=== PATIENT | female | born 1980 | race Two or more races ===

== ENCOUNTER 2017-12-17 16:00 | Emergency (ER) | payer MEDICAID ==
[~2017-12-17] VITALS: Ht 177.8 cm; Wt 122.5 kg
[~2017-12-17 16:00] MED LIST: ANTIHYPERTENSIVE
[2017-12-17 16:13] VITALS: BP 150/93
--- NOTE | 2017-12-17 16:23 | Emergency Room Report ---
History of Present Illness General Chief Complaint: General Complaint Source: Patient Present Illness HPI 37-year-old female, history of SVT one year ago, presenting with dizziness and palpitations. Patient states that it lasted for about 5-8 minutes, she called EMS, EMS states that she was in SVT, gave 6 mg of adenosine, then another 12 mg of adenosine and then she converted to normal sinus rhythm. Patient currently denies any chest pain, dizziness, lightheadedness Denies being , no thyroid issues States that this occurred one year ago, has not seen a patient accounts coordinator after the event Allergies: Coded Allergies: No Known Allergies (Unverified , 02/22/15) Patient History Past Medical History: see triage record Past Surgical History: none Pertinent Family History: none Now: No Reviewed Nursing Documentation: PMH: Agreed, PSxH: Agreed Nursing Documentation-PMH Past Medical History: No Stated History Hx Cardiac Problems: Yes - A.JOE Hx Hypertension: Yes Review of Systems All Other Systems: negative except mentioned in HPI Physical Exam Vital Signs Date Time Temp Pulse Resp B/P (MAP) Pulse Ox O2 Delivery O2 Flow Rate FiO2 12/17/17 16:03 98.7 105 18 161/105 98 Room Air 98.8 Sp02 EP Interpretation: reviewed, normal General Appearance: normal inspection, well appearing, no apparent distress, alert, GCS 15, non-toxic Head: normocephalic, atraumatic Eyes: bilateral eye normal inspection, bilateral eye PERRL, bilateral eye EOMI ENT: normal ENT inspection, normal pharynx, normal voice, moist mucus membranes Neck: normal inspection, full range of motion, supple Respiratory: normal inspection, lungs clear, normal breath sounds, no respiratory distress, no retraction, no wheezing, speaking full sentences, chest symmetrical Cardiovascular #1: normal inspection, regular rate, rhythm, no edema, normal capillary refill Cardiovascular #2: 2+ radial (R), 2+ radial (L) Gastrointestinal: normal inspection, non tender, soft, non-distended, no guarding Musculoskeletal: normal inspection, back normal, normal range of motion, non- tender Neurologic: normal inspection, alert, oriented x3, responsive, motor strength/ tone normal, sensory intact, normal gait, speech normal Psychiatric: normal inspection, judgement/insight normal, memory normal Skin: normal inspection, normal color, no rash, warm/dry, well hydrated, normal turgor Medical Decision Making Diagnostic Impression: Primary Impression: Hx of supraventricular tachycardia ER Course 37-year-old female presenting with sudden dizziness and palpitations, found to be in SVT DDX: SVT Rule out ACS, thyroid issues, dehydration PE less likely given history and physical examination, not hypoxic/tachycardic, no risk factors, PERC negative. Plan: Labs, EKG, CXR Anticipate DC home as patient appears clinically well. ER course: Patient remains well appearing in ED. no arrythmia during stay Feels much better Noted to have high TSH, told to followup with primary care DrAraceli Disposition: Patient will be discharged to home Strict precautions discussed with patient on when to emergently return to the ED : this includes worsening/severe chest pain, palpitations, shortness of breath, syncopal episodes, fever or chills, which may indicate severe illness. Patient verbalized understanding. Patient instructed to follow up with their PMD within the next 2 days. Patient agrees with plan. Aslo fu with cardiology Please note that this Emergency Department Report was dictated using [employer] representative technology software, occasionally this can lead to erroneous entry secondary to interpretation by the dictation equipment. EKG Diagnostic Results EP Interpretation: Yes Rate: normal Rhythm: NSR ST Segments: T-wave inversion in lead 3 only ASA given to patient: no Rhythm Strip EP Interpretation: Yes Rate: 90 Rhythm: NSR, no PVCs, no ectopy Chest X-ray CXR: Ordered: Yes 1 view Indication: Chest pain EP interpretation: Yes Interpretation: No consolidation, no effusion, no PTX, no acute cardiopulmonary disease Impression: No acute disease Electronically signed by Pat Boyd MD Laboratory Tests Test 12/17/17 16:28 White Blood Count 10.2 K/UL (4.8-10.8) Red Blood Count 4.49 M/UL (4.20-5.40) Hemoglobin 13.8 G/DL (12.0-16.0) Hematocrit 39.9 % (37.0-47.0) Mean Corpuscular Volume 89 FL (80-99) Mean Corpuscular Hemoglobin 30.8 PG (27.0-31.0) Mean Corpuscular Hemoglobin Concent 34.6 G/DL (32.0-36.0) Red Cell Distribution Width 12.4 % (11.6-14.8) Platelet Count 239 K/UL (150-450) Mean Platelet Volume 7.3 FL (6.5-10.1) Neutrophils (%) (Auto) 62.4 % (45.0-75.0) Lymphocytes (%) (Auto) 27.9 % (20.0-45.0) Monocytes (%) (Auto) 7.5 % (1.0-10.0) Eosinophils (%) (Auto) 1.6 % (0.0-3.0) Basophils (%) (Auto) 0.7 % (0.0-2.0) Sodium Level 139 MMOL/L (136-145) Potassium Level 4.0 MMOL/L (3.5-5.1) Chloride Level 104 MMOL/L (98-107) Carbon Dioxide Level 24 MMOL/L (21-32) Anion Gap 11 mmol/L (5-15) Blood Urea Nitrogen 17 mg/dL (7-18) Creatinine 0.7 MG/DL (0.55-1.30) Estimate Glomerular Filtration Rate > 60 mL/min (>60) Glucose Level 114 MG/DL (74-106) H Calcium Level 8.5 MG/DL (8.5-10.1) Total Bilirubin 0.3 MG/DL (0.2-1.0) Aspartate Amino Transferase (AST) 18 U/L (15-37) Alanine Aminotransferase (ALT) 21 U/L (12-78) Alkaline Phosphatase 73 U/L (46-116) Troponin I 0.000 ng/mL (0.000-0.056) Pro-B-Type Natriuretic Peptide 34 pg/mL (0-125) Total Protein 7.3 G/DL (6.4-8.2) Albumin 3.3 G/DL (3.4-5.0) L Globulin 4.0 g/dL Albumin/Globulin Ratio 0.8 (1.0-2.7) L Thyroid Stimulating Hormone (TSH) 7.629 uiU/mL (0.358-3.740) Last Vital Signs Date Time Temp Pulse Resp B/P (MAP) Pulse Ox O2 Delivery O2 Flow Rate FiO2 12/17/17 16:03 98.7 105 18 161/105 98 Room Air 98.8 Disposition: HOME, SELF-CARE Condition: Improved Pat Boyd M.D. Dec 17, 2017 16:23
[2017-12-17 17:06] LABS: ANION GAP 11 mmol/L (5-15); BLOOD UREA NITROGEN 17 mg/dL (7-18); CALCIUM 8.5 MG/DL (8.5-10.1); CARBON DIOXIDE 24 MMOL/L (21-32); CHLORIDE 104 MMOL/L (98-107); CREATININE 0.7 MG/DL (0.55-1.30); SODIUM 139 MMOL/L (136-145)
[2017-12-17 17:11] LABS: BASOPHILS % (AUTO) 0.7 % (0.0-2.0); EOSINOPHILS % (AUTO) 1.6 % (0.0-3.0); HEMATOCRIT 39.9 % (37.0-47.0); HEMOGLOBIN 13.8 G/DL (12.0-16.0); LYMPHOCYTES % (AUTO) 27.9 % (20.0-45.0); MEAN CORPUSCULAR VOLUME 89 FL (80-99); MONOCYTES % (AUTO) 7.5 % (1.0-10.0); NEUTROPHILS % (AUTO) 62.4 % (45.0-75.0); PLATELET COUNT 239 K/UL (150-450); RED BLOOD COUNT 4.49 M/UL (4.20-5.40); RED CELL DISTRIBUTION WIDTH 12.4 % (11.6-14.8); WHITE BLOOD COUNT 10.2 K/UL (4.8-10.8)
[2017-12-17 17:21] LABS: ALANINE AMINOTRANSFERASE 21 U/L (12-78); ALBUMIN 3.3 G/DL (3.4-5.0); ALBUMIN/GLOBULIN RATIO 0.8 (1.0-2.7); ALKALINE PHOSPHATASE 73 U/L (46-116); ASPARTATE AMINO TRANSFERASE 18 U/L (15-37); BILIRUBIN,TOTAL 0.3 MG/DL (0.2-1.0)
--- NOTE | 2017-12-17 17:30 | Diagnostic Imaging Report ---
Indication: Shortness of breath Technique: One view of the chest Comparison: 02/22/2015 Findings: Lungs and pleural spaces are clear. Heart size is upper limits of normal . No significant interim change Impression: No acute process
[2017-12-17 17:55] VITALS: BP 150/93
--- NOTE | 2017-12-18 16:28 | Cardiology Report ---
APPROVED REPORT EKG Measurement Heart [id number] OR [id number] Normal sinus rhythm Possible Left atrial enlargement Borderline ECG
== END 2017-12-17 19:50 | disposition home or self-care (01) ==
LOC: EDBD 16:00 → EMR 17:55
DX: I47.1 Supraventricular tachycardia (principal); E11.9 Type 2 diabetes mellitus without complications
CPT/HCPCS: 36415; 71045; 80053; 83880; 84443; 84484; 85025; 93005; 99283

== ENCOUNTER 2017-12-20 14:51 | Emergency (ER) | payer MEDICAID ==
[~2017-12-20] VITALS: Ht 175.3 cm; Wt 122.5 kg
--- NOTE | 2017-12-20 15:09 | Emergency Room Report ---
History of Present Illness General Chief Complaint: Chest Pain Source: Patient, EMS Present Illness HPI 37-year-old female brought in by EMS with palpitations, shortness of breath and lightheadedness. EMS rhythm strip shows atrial fib with RVR. Patient was not given any medication. She states she has history of atrial fibrillation, however has not been on any medication for a long time. Does not remember the medication she is to take. Patient states she was here 4 days ago, review of EMR shows that he EMS brought patient for SVT which allegedly converted to normal sinus rhythm with one dose of adenosine patient's EKG and lab work were unremarkable in the ER at the time and patient was discharged. Allergies: Coded Allergies: No Known Allergies (Unverified , 02/22/15) Patient History Past Medical History: AFib Past Surgical History: none Pertinent Family History: none Social History: Denies: smoking, alcohol use, drug use Last Menstrual Period: 11/24/17 Now: No Immunizations: UTD Reviewed Nursing Documentation: PMH: Agreed, PSxH: Agreed Nursing Documentation-PMH Past Medical History: No History, Except For Hx Cardiac Problems: Yes - A.FIB Hx Hypertension: Yes Review of Systems All Other Systems: negative except mentioned in HPI Physical Exam Vital Signs Date Time Temp Pulse Resp B/P (MAP) Pulse Ox O2 Delivery O2 Flow Rate FiO2 12/20/17 14:48 98.4 143 24 150/94 98 98.4 Sp02 EP Interpretation: reviewed, normal General Appearance: normal inspection, well appearing, no apparent distress, alert, GCS 15, non-toxic, obese Head: normocephalic, atraumatic Eyes: bilateral eye PERRL, bilateral eye EOMI ENT: normal ENT inspection, hearing grossly normal, normal pharynx, no angioedema, normal voice, TMs + canals normal, uvula midline, moist mucus membranes Neck: normal inspection, full range of motion, supple, thyroid normal, no meningismus, no bony tend Respiratory: normal inspection, lungs clear, normal breath sounds, no rhonchi, no respiratory distress, no retraction, no accessory muscle use, no wheezing, speaking full sentences Cardiovascular #1: no edema, no JVD, normal capillary refill, tachycardia, irregularly irregular Gastrointestinal: normal inspection, normal bowel sounds, non tender, soft, no mass, no peritonitis, non-distended, no guarding, no hernia, no pulsatile mass Genitourinary: no CVA tenderness Musculoskeletal: normal inspection, back normal, normal range of motion, no calf tenderness, pelvis stable, Yoandy's Sign negative Neurologic: normal inspection, alert, oriented x3, responsive, gaming investigator III-XII nml as tested, motor strength/tone normal, cerebellar normal, normal gait, speech normal Psychiatric: normal inspection, judgement/insight normal, mood/affect normal, no suicidal/homicidal ideation, no delusions Skin: normal inspection, normal color, no rash Lymphatic: normal inspection, no adenopathy Medical Decision Making Diagnostic Impression: Primary Impression: Atrial fibrillation with RVR Additional Impression: Palpitations ER Course 37-year-old female with atrial fibrillation with RVR Normotensive. She denies chest pain, shortness of breath or palpitations currently. As patient is hemodynamically stable and asymptomatic we'll not cardiovert Also unknown duration of atrial fib, cardioversion could lead to ischemic emboli Try conversion with Cardizem resulted in HR to 110, still in atrial fib. Was also given 120mg PO Cardizem. Remains normotensive. Feels better. will need admission and cardiology consult Labs unremarkable. H&H stable. Troponin 0 Utox negative. Tele admit Stable for transfer Capitated to [facility] Dr Pacheco accepted at 6pm EKG Diagnostic Results Rate: tachycardiac Rhythm: other - atrial fib ST Segments: no acute changes ASA given to the pt in ED: Yes Rhythm Strip Diag. Results EP Interpretation: yes Rate: 165 Rhythm: no PVC's, no ectopy Last Vital Signs Date Time Temp Pulse Resp B/P (MAP) Pulse Ox O2 Delivery O2 Flow Rate FiO2 12/20/17 14:48 98.4 143 24 150/94 98 98.4 Status: improved [facility] Condition: Serious LUDY DUBOIS M.D. Dec 20, 2017 15:09
[2017-12-20] MEDS ORDERED: dilTIAZem HCl 25mg/5ml Inj IVP ONE (15:15)
[2017-12-20 15:28] LABS: BASOPHILS % (AUTO) 0.6 % (0.0-2.0); EOSINOPHILS % (AUTO) 1.8 % (0.0-3.0); HEMATOCRIT 39.7 % (37.0-47.0); HEMOGLOBIN 14.1 G/DL (12.0-16.0); LYMPHOCYTES % (AUTO) 28.3 % (20.0-45.0); MEAN CORPUSCULAR VOLUME 88 FL (80-99); MONOCYTES % (AUTO) 7.5 % (1.0-10.0); NEUTROPHILS % (AUTO) 61.7 % (45.0-75.0); PLATELET COUNT 247 K/UL (150-450); RED BLOOD COUNT 4.52 M/UL (4.20-5.40); RED CELL DISTRIBUTION WIDTH 12.2 % (11.6-14.8); WHITE BLOOD COUNT 9.7 K/UL (4.8-10.8)
[2017-12-20] MEDS ORDERED: dilTIAZem HCl CD 120mg cap ORAL ONE (15:30)
[2017-12-20 15:35] VITALS: BP 123/71
[2017-12-20 15:49] LABS: ANION GAP 8 mmol/L (5-15); BLOOD UREA NITROGEN 16 mg/dL (7-18); CALCIUM 8.8 MG/DL (8.5-10.1); CARBON DIOXIDE 24 MMOL/L (21-32); CHLORIDE 105 MMOL/L (98-107); CREATININE 0.7 MG/DL (0.55-1.30); POTASSIUM 3.6 MMOL/L (3.5-5.1); SODIUM 137 MMOL/L (136-145)
[2017-12-20 16:03] LABS: ALANINE AMINOTRANSFERASE 22 U/L (12-78); ALBUMIN 3.4 G/DL (3.4-5.0); ALBUMIN/GLOBULIN RATIO 0.8 (1.0-2.7); ALKALINE PHOSPHATASE 78 U/L (46-116); ASPARTATE AMINO TRANSFERASE 19 U/L (15-37); BILIRUBIN,TOTAL 0.3 MG/DL (0.2-1.0); CKMB 0.5 NG/ML (0.0-3.6); CREATINE KINASE 66 U/L (26-308)
--- NOTE | 2017-12-20 16:04 | Diagnostic Imaging Report ---
Indication: Dyspnea Comparison: 12/17/2017 A single view chest radiograph was obtained. Findings: Cardiomediastinal appearance is within normal limits for age. Pulmonary vascularity is appropriate. The diaphragmatic contour is smooth and costophrenic angles are sharp. No pleural effusions are identified. The bones are unremarkable. Impression: No acute findings
[2017-12-20] MEDS ORDERED: NKM (16:56)
[2017-12-20 18:48] VITALS: BP 115/78
[2017-12-20 21:27] VITALS: BP 123/82
[2017-12-20 21:43] VITALS: BP 123/82
== END 2017-12-20 21:44 | disposition short-term general hospital (02) ==
LOC: EDBD 14:51 → EDBEDREQ 15:07 → EMR 15:16 → EDBEDREQ 15:51 → EMR 21:44
DX: I48.91 Unspecified atrial fibrillation (principal); I10 Essential (primary) hypertension
CPT/HCPCS: 36415; 71045; 80053; 80307; 82550; 82553; 84484; 85025; 93005; 96374; 99285

== ENCOUNTER 2019-01-15 12:41 | Inpatient (IN) | payer MEDICAID ==
[~2019-01-15] VITALS: Ht 170.2 cm; Wt 121.6 kg
[2019-01-15] VITALS (14 sets, daily range): BP systolic 105–175; BP diastolic 67–100
[~2019-01-15 12:41] MED LIST changes: +NKM
[2019-01-15] MEDS ORDERED: dilTIAZem HCl 25mg/5ml Inj IVP ONE ×2 (12:45→13:15)
[2019-01-15] MEDS ORDERED: Adenosine 6mg/2ml Inj IV ONE (12:45)
--- NOTE | 2019-01-15 12:50 | NUR ---
ED Nurse Note: Patient brought in to ER by ambulance from work due to palpitation. pt aao x4 and ambulatory. pt has elevated BP and HR as documented and ERMD notified. skin pale and clean and intact.
[2019-01-15] MEDS ORDERED: dilTIAZem HCl 25mg/5ml Inj ONE ×2 (13:10→15:15)
--- NOTE | 2019-01-15 13:10 | NUR ---
ED Nurse Note: Blood was drawn and sent to the lab.
--- NOTE | 2019-01-15 13:15 | NUR ---
ED Nurse Note: Pt ambulated back and forth to bathroom to urinate in stable condition.
[2019-01-15 13:20] LABS: EOSINOPHILS % (AUTO) 1.8 % (0.0-3.0); HEMATOCRIT 33.9 % (37.0-47.0); HEMOGLOBIN 11.1 G/DL (12.0-16.0); LYMPHOCYTES % (AUTO) 31.9 % (20.0-45.0); MEAN CORPUSCULAR VOLUME 81 FL (80-99); MONOCYTES % (AUTO) 5.5 % (1.0-10.0); NEUTROPHILS % (AUTO) 59.7 % (45.0-75.0); PLATELET COUNT 277 K/UL (150-450); RED CELL DISTRIBUTION WIDTH 14.2 % (11.6-14.8); WHITE BLOOD COUNT 10.2 K/UL (4.8-10.8)
[2019-01-15 13:39] LABS: ANION GAP 9 mmol/L (5-15); BLOOD UREA NITROGEN 15 mg/dL (7-18); CALCIUM 7.9 MG/DL (8.5-10.1); CARBON DIOXIDE 26 MMOL/L (21-32); CHLORIDE 105 MMOL/L (98-107); CREATININE 0.8 MG/DL (0.55-1.30); POTASSIUM 3.3 MMOL/L (3.5-5.1); SODIUM 140 MMOL/L (136-145)
[2019-01-15 13:45] LABS: ALANINE AMINOTRANSFERASE 19 U/L (12-78); ALBUMIN 2.9 G/DL (3.4-5.0); ALBUMIN/GLOBULIN RATIO 0.7 (1.0-2.7); ALKALINE PHOSPHATASE 84 U/L (46-116); ASPARTATE AMINO TRANSFERASE 16 U/L (15-37); BILIRUBIN,TOTAL 0.2 MG/DL (0.2-1.0); CKMB 0.7 NG/ML (0.0-3.6); CREATINE KINASE 78 U/L (26-308)
--- NOTE | 2019-01-15 13:59 | Diagnostic Imaging Report ---
Indication: Shortness of breath Technique: One view of the chest Comparison: 12/20/2017 Findings: The heart is borderline enlarged. The lungs and pleural spaces are clear. No significant interim change Impression: Borderline cardiomegaly. No acute process
--- NOTE | 2019-01-15 14:59 | NUR ---
ED Nurse Note: Report given to CARLO Quiros. room is not available at this moment so will transfer pt at 1530.
--- NOTE | 2019-01-15 14:59 | NUR ---
Note christopher in EDM - 01/15/19 at 1554 by [email or web address] ED Nurse Note: Cardiazem initiated at 2.5mg/hr. Vital signs 118/min, 108/89 mmHg.
--- NOTE | 2019-01-15 15:16 | NUR ---
ED Nurse Note: HR went up to 155/min and admitting doctor Dr. Don saw the pt at the bedside and gave verbal report to stablize HR first before transferring pt to Telemetry unit. Overrode Cardizem 10mg.
--- NOTE | 2019-01-15 15:22 | NUR ---
ED Nurse Note: ERMD notified about DR. Don's verbal order and agreed with it.
[2019-01-15] MEDS ORDERED: dilTIAZem HCl 125mg/25ml Inj IVPB ONE (15:34)
--- NOTE | 2019-01-15 15:41 | History and Physical ---
History of Present Illness General Date patient seen: Jan 15, 2019 Time patient seen: 15:30 Reason for Hospitalization: Rapid atrial fib Present Illness HPI 38 year old woman with history of morbid obesity, HTN, pAfib (diagnosed 1 year ago) who presented through the ED with complaints of palpitations and dizziness while at work today. She denies any chest pain, dyspnea, diaphoresis, fever or chills. She reports being on metoprolol for HTN. Was evaluated by a Mold Builder last year for atrial fibrillation but she is unable to provide details. In ED she was treated with IV diltiazem with improvement in HHR to 120s. During my encounter she is noted to have HR in 150s-170s on monitor. PMH: As above Social History: Denies alcohol or drugs Famiyl History: No history of premature CAD Allergies: Coded Allergies: No Known Allergies (Unverified , 02/22/15) Medication History Scheduled No Known Medications* (NKM - No Known Medications*), 0 ., (Reported) Miscellaneous Medications [Antihypertensive], (Reported) Patient History Healthcare decision maker Resuscitation status Advanced Directive on File Review of Systems Constitutional: Denies: chills, sweats, fever Eye: Denies: eye pain, blurred vision ENT: Denies: ear pain Respiratory: Denies: cough, orthopnea Cardiovascular: Reports: palpitations; Denies: chest pain, edema, syncope Gastrointestinal: Denies: abdominal pain, constipation Genitourinary: Denies: discharge, dysuria, frequency Musculoskeletal: Denies: back pain, joint pain Skin: Denies: rash, change in color Psychiatric: Denies: anxiety Neurological: Denies: headache, numbness Endocrine: Denies: excessive sweating, flushing Hematologic/Lymphatic: Denies: anemia, blood clots Physical Exam General Appearance: no apparent distress, alert HEENT: atraumatic, anicteric, mucous membranes moist Neck: normal alignment, supple, normal inspection Respiratory/Chest: lungs clear, normal breath sounds, no respiratory distress Cardiovascular/Chest: tachycardia, irregularly irregular Abdomen: non tender, soft, no organomegaly Extremities: non-tender, normal inspection Skin Exam: normal pigmentation, warm/dry 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0-31.0) L Mean Corpuscular Hemoglobin Concent 32.7 G/DL (32.0-36.0) Red Cell Distribution Width 14.2 % (11.6-14.8) Platelet Count 277 K/UL (150-450) Mean Platelet Volume 6.6 FL (6.5-10.1) Neutrophils (%) (Auto) 59.7 % (45.0-75.0) Lymphocytes (%) (Auto) 31.9 % (20.0-45.0) Monocytes (%) (Auto) 5.5 % (1.0-10.0) Eosinophils (%) (Auto) 1.8 % (0.0-3.0) Basophils (%) (Auto) 1.0 % (0.0-2.0) Sodium Level 140 MMOL/L (136-145) Potassium Level 3.3 MMOL/L (3.5-5.1) L Chloride Level 105 MMOL/L (98-107) Carbon Dioxide Level 26 MMOL/L (21-32) Anion Gap 9 mmol/L (5-15) Blood Urea Nitrogen 15 mg/dL (7-18) Creatinine 0.8 MG/DL (0.55-1.30) Estimat Glomerular Filtration Rate > 60 mL/min (>60) Glucose Level 125 MG/DL (74-106) H Calcium Level 7.9 MG/DL (8.5-10.1) L Total Bilirubin 0.2 MG/DL (0.2-1.0) Aspartate Amino Transf (AST/SGOT) 16 U/L (15-37) Alanine Aminotransferase (ALT/SGPT) 19 U/L (12-78) Alkaline Phosphatase 84 U/L (46-116) Total Creatine Kinase 78 U/L (26-308) Creatine Kinase MB 0.7 NG/ML (0.0-3.6) Creatine Kinase MB Relative Index 0.8 Troponin I 0.004 ng/mL (0.000-0.056) Total Protein 6.9 G/DL (6.4-8.2) Albumin 2.9 G/DL (3.4-5.0) L Globulin 4.0 g/dL Albumin/Globulin Ratio 0.7 (1.0-2.7) L Height (Feet): 5 Height (Inches): 10.00 Weight (Pounds): 280 Medications Current Medications Medications (Trade) Dose Ordered Sig/Uriel Route PRN Reason Start Time Stop Time Status Last Admin Dose Admin Diltiazem HCl 125 mg/Dextrose 125 ml @ 0 mls/hr Q24H IV 01/15/19 15:30 01/16/19 15:29 Assessment/Plan Assessment/Plan #Rapid atrial fibrillation -admit to telemetry unit -given another IV push of diltiazem -start diltiazem continuous infusion -check serial trops and monitor lytes -check TFTs -check TTE -Cardiology eval #Hypokalemia -replace with oral KCl -check Mg -check labs in AM #Morbid obesity -lifestyle modification VTE PPx heparin SC Full Code Homar Lazar MD Jan 15, 2019 15:41
--- NOTE | 2019-01-15 15:49 | NUR ---
ED Nurse Note: Cardiazem drip initiated at 2.5mg/hr. Vital signs 118/min, 108/89 mmHg.
[2019-01-15] MEDS ORDERED: Milk of Magnesia 30ml Ud ORAL PRN (16:00)
--- NOTE | 2019-01-15 16:17 | Emergency Room Report ---
History of Present Illness General Chief Complaint: Palpitations Source: Patient Present Illness HPI Patient has history of A. fib with RVR. She develop acute onset of severe tachycardia palpitations shortness of breath today and came here for further evaluation. She denies any fever. States in the past she has had both SVT as well as A. fib with RVR. 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 No other complaints are noted. Symptoms noted to be severe.No other modifying factors. No other associated signs and symptoms. No other complaints were noted. Allergies: Coded Allergies: No Known Allergies (Unverified , 02/22/15) Patient History Past Medical History: HTN Past Surgical History: none Pertinent Family History: none Social History: Denies: smoking, alcohol use, drug use Now: No Reviewed Nursing Documentation: PMH: Agreed; PSxH: Agreed Nursing Documentation-PMH Hx Hypertension: Yes Review of Systems All Other Systems: negative except mentioned in HPI Physical Exam Vital Signs Date Time Temp Pulse Resp B/P (MAP) Pulse Ox O2 Delivery O2 Flow Rate FiO2 01/15/19 12:33 98.1 160 18 176/132 99 Room Air Sp02 EP Interpretation: reviewed, normal General Appearance: normal inspection, well appearing, no apparent distress, alert Head: atraumatic Eyes: bilateral eye normal inspection ENT: normal ENT inspection, hearing grossly normal, normal voice Neck: normal inspection, full range of motion, supple, no bony tend Respiratory: normal inspection, lungs clear, normal breath sounds, no respiratory distress, no retraction, no wheezing Cardiovascular #1: no edema, tachycardia Gastrointestinal: normal inspection, normal bowel sounds, non tender, soft, no guarding, no hernia Genitourinary: no CVA tenderness Musculoskeletal: normal inspection, back normal, normal range of motion Neurologic: normal inspection, alert, responsive, speech normal Psychiatric: normal inspection, judgement/insight normal, mood/affect normal Skin: normal inspection, normal color, no rash Procedures Critical Care Time Critical Care Time Patient had a critical medical condition which untreated could potentially result in life or limb threatening injury. Total critical care time excluding procedures was approximately 45 minutes. Medical Decision Making Diagnostic Impression: Primary Impression: Atrial fibrillation with RVR ER Course Patient presents emergency department today complaining of palpitations. Differential considerations include acute arrhythmia, acute electrolyte abnormality, acute OH just name a few.Given the severity of the patient's presentation I felt this is a highly complex patient. This patient required extensive workup. Patient's laboratory workup was not impressive. Patient's EKG however show A. fib with RVR. Patient was given multiple doses of of Cardizem and heart rate discomfort but unfortunately it went back into tachycardia. Because that patient require Cardizem drip. Patient will be admitted to the intensive care unit for further treatment. Case was discussed with admitting physician. Labs Test 01/15/19 13:00 White Blood Count 10.2 K/UL (4.8-10.8) Red Blood Count 4.20 M/UL (4.20-5.40) Hemoglobin 11.1 G/DL (12.0-16.0) Hematocrit 33.9 % (37.0-47.0) Mean Corpuscular Volume 81 FL (80-99) Mean Corpuscular Hemoglobin 26.4 PG (27.0-31.0) Mean Corpuscular Hemoglobin Concent 32.7 G/DL (32.0-36.0) Red Cell Distribution Width 14.2 % (11.6-14.8) Platelet Count 277 K/UL (150-450) Mean Platelet Volume 6.6 FL (6.5-10.1) Neutrophils (%) (Auto) 59.7 % (45.0-75.0) Lymphocytes (%) (Auto) 31.9 % (20.0-45.0) Monocytes (%) (Auto) 5.5 % (1.0-10.0) Eosinophils (%) (Auto) 1.8 % (0.0-3.0) Basophils (%) (Auto) 1.0 % (0.0-2.0) Sodium Level 140 MMOL/L (136-145) Potassium Level 3.3 MMOL/L (3.5-5.1) Chloride Level 105 MMOL/L (98-107) Carbon Dioxide Level 26 MMOL/L (21-32) Anion Gap 9 mmol/L (5-15) Blood Urea Nitrogen 15 mg/dL (7-18) Creatinine 0.8 MG/DL (0.55-1.30) Estimat Glomerular Filtration Rate > 60 mL/min (>60) Glucose Level 125 MG/DL (74-106) Calcium Level 7.9 MG/DL (8.5-10.1) Total Bilirubin 0.2 MG/DL (0.2-1.0) Aspartate Amino Transf (AST/SGOT) 16 U/L (15-37) Alanine Aminotransferase (ALT/SGPT) 19 U/L (12-78) Alkaline Phosphatase 84 U/L (46-116) Total Creatine Kinase 78 U/L (26-308) Creatine Kinase MB 0.7 NG/ML (0.0-3.6) Creatine Kinase MB Relative Index 0.8 Troponin I 0.004 ng/mL (0.000-0.056) Total Protein 6.9 G/DL (6.4-8.2) Albumin 2.9 G/DL (3.4-5.0) Globulin 4.0 g/dL Albumin/Globulin Ratio 0.7 (1.0-2.7) EKG Diagnostic Results Rate: tachycardiac Rhythm: other - Irregular ST Segments: no acute changes Rhythm Strip Diag. Results EP Interpretation: yes Rate: 160s Rhythm: no PVC's, no ectopy, other - Atrial fib with RVR Chest X-Ray Diagnostic Results Chest X-Ray Diagnostic Results : Chest X-Ray Ordered: Yes # of Views/Limited/Complete: 1 View Indication: Chest Pain EP Interpretation: No Impression: No acute disease Last Vital Signs Date Time Temp Pulse Resp B/P (MAP) Pulse Ox O2 Delivery O2 Flow Rate FiO2 01/15/19 15:49 119 108/89 01/15/19 13:46 98.0 22 98 Room Air Status: improved Disposition: ADMITTED INPATIENT Condition: Critical Referrals: NON PHYSICIAN (PCP) Elmer Nazario MD Jan 15, 2019 16:17
--- NOTE | 2019-01-15 17:06 | NUR ---
ED Nurse Note: Attempted to give report. per nurse Chavira the accepting nurse is in conference and asked to call back in 30 minutes.
--- NOTE | 2019-01-15 17:11 | NUR ---
ED Nurse Note: Report given to charge nurse in ICU.
--- NOTE | 2019-01-15 17:50 | NUR ---
ED Nurse Note: Pt left department 1 RN and 1 automation technologist in stable condition. Cardiazem drip at 15mg/hr and HR 118/min. CARLO Hernandez received report.
--- NOTE | 2019-01-15 17:55 | NUR ---
NURSE NOTES: Pt arrived via gurney. Belongings checked. at bedside. Pt is ambulatory, alert and oriented x4. On RA. A-fib with RVR. HR fluctuates from 120 to 130's. Denies chest pain. Pt is complaining of headache 03/24. Will administer Tylenol. Afebrile. BP 115/83. IV to right AC G18 patent and asymptomatic. Pt is on Cardizem drip at 15mg/hr. Bed in lowest position. Side rails up x3. Call light within reach. Will resume plan of care.
--- NOTE | 2019-01-15 18:19 | NUR ---
NURSE NOTES: Tylenol 650mg given for headache 03/24. Will reassess pain.
[2019-01-15] MEDS ORDERED: METOPROLOL TART50 M1 ORAL (18:24)
--- NOTE | 2019-01-15 19:01 | NUR ---
HAND-OFF: Report given to CARLO De La Paz.
--- NOTE | 2019-01-15 19:10 | NUR ---
NURSE NOTES: Massage left for Dr Carter regarding low K, diet, code, Pencil Inspector consult, and PO Cardizem clarification. Awaiting call back for new orders.
--- NOTE | 2019-01-15 19:30 | NUR ---
NURSE NOTES: Recvd.AAO family at BS,Resp. unlabored.Sat.98-99% on RA.Denies CP.See V/S.Scope AF with RVR.Cardizem drip in progress at 15mg/hr.Self repositioned to comfort.Awaits for return call for order clarification of some orders.
[2019-01-15] MEDS ORDERED: dilTIAZem HCl 30mg tab ORAL SCH (20:00)
[2019-01-15] MEDS: Docusate 100mg cap ORAL SCH (20:23)
[2019-01-15] MEDS: Heparin 5000 units/ml inj SUBQ SCH (20:26)
--- NOTE | 2019-01-15 22:45 | NUR ---
NURSE NOTES: HS Care rendered.Pos. self to comfort.Due meds recvd.Voided Freely. ecdis n navigation operator for return call order clarification made.Grabiel barajas temp.D'cd.R/T pt.still on cardizem drip.Will reorder after OFF cardizem drip.See order for K-replacement.
[2019-01-16] VITALS (30 sets, daily range): BP systolic 98–141; BP diastolic 45–103
--- NOTE | 2019-01-16 00:10 | NUR ---
NURSE NOTES: Asleep.Resp.unlabored.P.Ox-98-99% on RA.See V/S.Scope pattern same.Maintain on cardizem drip at 15mg/hr.No CP.Cont.Plan of care.
--- NOTE | 2019-01-16 02:00 | NUR ---
NURSE NOTES: Sound asleep,Resp.unlabored.HR-86,Cardizem drip taper down to 10mg/hr.Cont.Ca.Monitoring.
--- NOTE | 2019-01-16 04:37 | NUR ---
NURSE NOTES: Blood drawn for cbc/bmp/mg/Tsh and tropo.spec.to Lab.See V/S.Scope pattern same.Rate controlled.Cardizem drip taper down to lower dose.
[2019-01-16 05:45] LABS: BASOPHILS % (AUTO) 0.8 % (0.0-2.0); EOSINOPHILS % (AUTO) 2.6 % (0.0-3.0); HEMATOCRIT 38.5 % (37.0-47.0); HEMOGLOBIN 12.3 G/DL (12.0-16.0); LYMPHOCYTES % (AUTO) 31.1 % (20.0-45.0); MEAN CORPUSCULAR VOLUME 82 FL (80-99); MONOCYTES % (AUTO) 7.3 % (1.0-10.0); NEUTROPHILS % (AUTO) 58.2 % (45.0-75.0); PLATELET COUNT 313 K/UL (150-450); RED BLOOD COUNT 4.73 M/UL (4.20-5.40); RED CELL DISTRIBUTION WIDTH 14.3 % (11.6-14.8); WHITE BLOOD COUNT 10.9 K/UL (4.8-10.8)
--- NOTE | 2019-01-16 06:00 | NUR ---
NURSE NOTES: Up assisted to bathroom refused Bedpan.stated she's OK.Voided Freely.Noticeable HR speed up when awake and active.Diltiazem resume back to 10mg/hr.denies any discomfort.Stated feels much better.
[2019-01-16 06:28] LABS: ANION GAP 10 mmol/L (5-15); BLOOD UREA NITROGEN 12 mg/dL (7-18); CALCIUM 8.7 MG/DL (8.5-10.1); CARBON DIOXIDE 25 MMOL/L (21-32); CHLORIDE 103 MMOL/L (98-107); CREATININE 0.7 MG/DL (0.55-1.30); POTASSIUM 3.8 MMOL/L (3.5-5.1); SODIUM 138 MMOL/L (136-145)
--- NOTE | 2019-01-16 07:11 | NUR ---
HAND-OFF: Report given to YOLANDA CISNEROS RN.
--- NOTE | 2019-01-16 07:12 | NUR ---
NURSE NOTES: Report received from Donnell MATOS. Pt is asleep in bed, awakens to name/voice, oriented x4, at bedside. Denies chest pain or any other discomfort at this time. On room air with no respiratory distress. Peripheral IV access is present on right AC #18G, infusing Cardizem on 10mg/hr. residential monitor displays AFib with heart fluctuating in the 90's. Lung sounds are clear. Abdomen is round and soft to the touch, with bowel sounds present in all four quadrants. No edema noted in extremities. Skin is intact. Per material handler 1st shift report, pt has ambulated to restroom to void during the material handler 1st shift. Also, observed pt ambulate to restroom with steady gait. Bed is locked, with two side rails up and call light within easy reach. Will continue to monitor pt and follow plan of care per Md orders and protocol.
--- NOTE | 2019-01-16 08:00 | NUR ---
NURSE NOTES: Pt was seen by Dr Rico at bedside. MD ordered 2D Echo, and Metoprolol PO 75mg BID with instructions to administer first dose now, then stop the Diltiazem IV drip 30 minutes after the 1st dose of Metoprolol. Will process and follow as ordered.
--- NOTE | 2019-01-16 08:22 | NUR ---
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 No acute process IS:DILTIAZEM 10mg IVP DILTIAZEM HCI 125mg/D5 125ml IV ADMITTED TO ICU DC PLAN: RETURN HOME
--- NOTE | 2019-01-16 08:50 | NUR ---
NURSE NOTES: Dr Prado saw pt at bedside, and concurred with Dr Rico's order to administer Metoprolol 75mg PO BID, and stop Cardizem Drip 30 min after 1st dose of Metoprolol. Also stopped IV bolus order. Will process order and follow as instructed.
[2019-01-16] MEDS: Docusate 100mg cap ORAL SCH ×2 (08:53→20:48)
[2019-01-16] MEDS: Heparin 5000 units/ml inj SUBQ SCH ×2 (08:53→20:52)
[2019-01-16] MEDS ORDERED: Metoprolol Tartrate 50mg tab ORAL SCH (09:00)
--- NOTE | 2019-01-16 09:00 | NUR ---
NURSE NOTES: Informed Dr Prado regarding TSH result 8.430H. placed order for T4.
--- NOTE | 2019-01-16 09:15 | Consultation ---
History of Present Illness General Date patient seen: Jan 16, 2019 Time patient seen: 09:10 Chief Complaint: Palpitations Present Illness HPI 38 year old woman with history of morbid obesity, HTN, pAfib who presented through the ED with complaints of palpitations and dizziness She has not been compliant with metoprolol NO previous TN/PE/DVT/CVA. She was given cardizem in ER and now in ICU on cardizem gtt. Heart rates 110s, BP 90s, no chest pain, troponin negative. Allergies: Coded Allergies: No Known Allergies (Unverified , 02/22/15) Medication History Scheduled Metoprolol Tartrate* (Metoprolol Tartrate*), 50 MG ORAL DAILY, (Reported) No Known Medications* (NKM - No Known Medications*), 0 ., (Reported) Miscellaneous Medications [Antihypertensive], (Reported) Patient History Healthcare decision maker Resuscitation status Full Code Advanced Directive on File No Review of Systems Constitutional: Reports: no symptoms Eye: Reports: no symptoms ENT: Reports: no symptoms Respiratory: Reports: no symptoms Cardiovascular: Reports: palpitations Gastrointestinal: Reports: no symptoms Genitourinary: Reports: no symptoms Musculoskeletal: Reports: no symptoms Skin: Reports: no symptoms Psychiatric: Reports: no symptoms Neurological: Reports: no symptoms Endocrine: Reports: no symptoms Hematologic/Lymphatic: Reports: no symptoms Physical Exam General Appearance: no apparent distress, alert Lines, tubes and drains: peripheral HEENT: normocephalic, atraumatic, anicteric, mucous membranes moist, PERRL Neck: non-tender, normal alignment, supple, normal inspection Respiratory/Chest: chest wall non-tender, lungs clear, normal breath sounds, no respiratory distress Cardiovascular/Chest: normal peripheral pulses, tachycardia, arrhythmia, irregularly irregular Abdomen: normal bowel sounds, non tender, soft, no organomegaly, no mass Extremities: normal range of motion, non-tender, normal inspection, no calf tenderness, normal capillary refill, non-pitting Skin Exam: normal pigmentation, warm/dry, cyanotic 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 normal, no motor/sensory deficits Last 24 Hour Vital Signs Date Time Temp Pulse Resp B/P (MAP) Pulse Ox O2 Delivery O2 Flow Rate FiO2 01/16/19 08:58 95 113/74 01/16/19 07:00 91 16 107/83 (91) 98 01/16/19 06:00 88 19 111/79 (90) 97 01/16/19 05:00 82 17 119/63 (81) 97 01/16/19 04:00 88 01/16/19 04:00 98.4 81 19 98/64 (75) 98 01/16/19 04:00 Room Air 01/16/19 03:00 81 18 102/45 (64) 98 01/16/19 02:00 86 17 107/49 (68) 98 01/16/19 01:16 81 104/47 01/16/19 01:00 86 16 104/47 (66) 97 01/16/19 00:00 101 01/16/19 00:00 Room Air 01/16/19 00:00 98.7 101 20 119/69 (86) 98 01/15/19 23:00 109 19 110/68 (82) 97 01/15/19 22:00 107 21 142/67 (92) 99 01/15/19 21:00 109 15 130/82 (98) 99 01/15/19 20:00 98.2 108 21 134/77 (96) 98 01/15/19 20:00 Room Air 01/15/19 19:00 108 19 136/80 (98) 99 01/15/19 18:30 116 20 115/83 (94) 98 01/15/19 18:21 134 115/83 01/15/19 18:15 123 20 115/83 (94) 98 01/15/19 18:13 Room Air 01/15/19 18:06 127 01/15/19 18:00 98.3 134 23 127/82 (97) 98 01/15/19 17:50 97.8 128 18 131/76 98 Room Air 01/15/19 17:50 98.0 118 18 132/70 98 Room Air 01/15/19 17:00 97.8 122 18 132/70 98 Room Air 01/15/19 16:00 98.1 111 22 105/83 100 Room Air 01/15/19 15:49 119 108/89 01/15/19 15:00 98.2 134 21 109/71 100 Room Air 01/15/19 13:46 98.0 148 22 144/82 98 Room Air 01/15/19 13:18 144 110/63 01/15/19 13:12 175 171/99 4/3/19 12:50 98.1 175 24 175/100 99 Room Air 01/15/19 12:33 98.1 160 18 176/132 99 Room Air Intake and Output 01/15/19 01/16/19 18:59 06:59 Intake Total 0 ml 518 ml Output Total 300 ml Balance 0 ml 218 ml Intake Oral 0 ml 380 ml IV Total 138 ml Output Urine Total 300 ml # Voids 1 3 Laboratory Tests Test 01/15/19 13:00 01/16/19 04:35 White Blood Count 10.2 K/UL (4.8-10.8) 10.9 K/UL (4.8-10.8) H Red Blood Count 4.20 M/UL (4.20-5.40) 4.73 M/UL (4.20-5.40) Hemoglobin 11.1 G/DL (12.0-16.0) L 12.3 G/DL (12.0-16.0) Hematocrit 33.9 % (37.0-47.0) L 38.5 % (37.0-47.0) Mean Corpuscular Volume 81 FL (80-99) 82 FL (80-99) Mean Corpuscular Hemoglobin 26.4 PG (27.0-31.0) L 26.1 PG (27.0-31.0) L Mean Corpuscular Hemoglobin Concent 32.7 G/DL (32.0-36.0) 32.0 G/DL (32.0-36.0) Red Cell Distribution Width 14.2 % (11.6-14.8) 14.3 % (11.6-14.8) Platelet Count 277 K/UL (150-450) 313 K/UL (150-450) Mean Platelet Volume 6.6 FL (6.5-10.1) 6.7 FL (6.5-10.1) Neutrophils (%) (Auto) 59.7 % (45.0-75.0) 58.2 % (45.0-75.0) Lymphocytes (%) (Auto) 31.9 % (20.0-45.0) 31.1 % (20.0-45.0) Monocytes (%) (Auto) 5.5 % (1.0-10.0) 7.3 % (1.0-10.0) Eosinophils (%) (Auto) 1.8 % (0.0-3.0) 2.6 % (0.0-3.0) Basophils (%) (Auto) 1.0 % (0.0-2.0) 0.8 % (0.0-2.0) Sodium Level 140 MMOL/L (136-145) 138 MMOL/L (136-145) Potassium Level 3.3 MMOL/L (3.5-5.1) L 3.8 MMOL/L (3.5-5.1) Chloride Level 105 MMOL/L (98-107) 103 MMOL/L (98-107) Carbon Dioxide Level 26 MMOL/L (21-32) 25 MMOL/L (21-32) Anion Gap 9 mmol/L (5-15) 10 mmol/L (5-15) Blood Urea Nitrogen 15 mg/dL (7-18) 12 mg/dL (7-18) Creatinine 0.8 MG/DL (0.55-1.30) 0.7 MG/DL (0.55-1.30) Estimat Glomerular Filtration Rate > 60 mL/min (>60) > 60 mL/min (>60) Glucose Level 125 MG/DL (74-106) H 111 MG/DL (74-106) H Calcium Level 7.9 MG/DL (8.5-10.1) L 8.7 MG/DL (8.5-10.1) Total Bilirubin 0.2 MG/DL (0.2-1.0) Aspartate Amino Transf (AST/SGOT) 16 U/L (15-37) Alanine Aminotransferase (ALT/SGPT) 19 U/L (12-78) Alkaline Phosphatase 84 U/L (46-116) Total Creatine Kinase 78 U/L (26-308) Creatine Kinase MB 0.7 NG/ML (0.0-3.6) Creatine Kinase MB Relative Index 0.8 Troponin I 0.004 ng/mL (0.000-0.056) 0.007 ng/mL (0.000-0.056) Total Protein 6.9 G/DL (6.4-8.2) Albumin 2.9 G/DL (3.4-5.0) L Globulin 4.0 g/dL Albumin/Globulin Ratio 0.7 (1.0-2.7) L Magnesium Level 1.9 MG/DL (1.8-2.4) Thyroid Stimulating Hormone (TSH) 8.430 uiU/mL (0.358-3.740) Free Thyroxine Pending Height (Feet): 5 Height (Inches): 7.00 Weight (Pounds): 266 Medications Current Medications Medications (Trade) Dose Ordered Sig/Uriel Route PRN Reason Start Time Stop Time Status Last Admin Dose Admin Acetaminophen (Tylenol) 650 mg Q4H PRN ORAL Mild Pain (Pain Scale 1-3) 01/15/19 16:00 02/14/19 15:59 01/15/19 18:19 Dextrose (Dextrose 50%) 25 ml Q30M PRN IV Hypoglycemia 01/15/19 16:00 02/14/19 15:59 Dextrose (Dextrose 50%) 50 ml Q30M PRN IV Hypoglycemia 01/15/19 16:00 02/14/19 15:59 Diltiazem HCl 125 mg/Dextrose 125 ml @ 0 mls/hr Q24H IV 01/15/19 18:00 01/16/19 17:59 01/16/19 01:16 Docusate Sodium (Colace) 100 mg EVERY 12 HOURS ORAL 01/15/19 21:00 02/14/19 20:59 01/16/19 08:53 Heparin Sodium (Porcine) (Heparin 5000 units/ml) 5,000 units EVERY 12 HOURS SUBQ 01/15/19 21:00 02/14/19 20:59 01/16/19 08:53 Magnesium Hydroxide (Mom) 30 ml HSPRN PRN ORAL Constipation 01/15/19 16:00 02/14/19 15:59 Metoprolol Tartrate (Lopressor) 75 mg Q12HR ORAL 01/16/19 09:00 02/15/19 08:59 01/16/19 08:58 Ondansetron HCl (Zofran) 4 mg Q6H PRN IVP Nausea & Vomiting 01/15/19 16:00 02/14/19 15:59 Assessment/Plan Status: stable Assessment/Plan Assessment/Plan Atrial fibrillation -Cardizem gtt -Transition to metoprolol 75 mg BID -CHADS score 0 -Aspirin 325 mg -Echocardiogram pending -Transfer to floor -No indication for cardioversion -Troponin negative #Hypokalemia -Replete electrolytes #Morbid obesity -lifestyle modification -Outpatient sleep study -Nutrition consult Fan Rico MD Jan 16, 2019 09:15
--- NOTE | 2019-01-16 10:00 | NUR ---
NURSE NOTES: Pt's heart rate is between 80's to 90's and BP 110's to 120s, after stopping Cardizem Drip and administration of PO Metoprolol. No chest pain or shortness of breath present.
--- NOTE | 2019-01-16 11:23 | General Progress Note ---
Assessment/Plan Assessment/Plan #Rapid atrial fibrillation -better control -start metoprolol 75 mg PO bid -wean off dilt drip -check serial trops and monitor lytes -TFTs reviewed, elevated TSH but free T4 wnl -TTE pending -Cardiology eval appreciated #Hypokalemia, resolved -continue to monitor BMP #Morbid obesity -lifestyle modification VTE PPx heparin SC Full Code Subjective Date patient seen: Jan 16, 2019 Time patient seen: 08:15 ROS Limited/Unobtainable: No Constitutional: Denies: chills, fever Cardiovascular: Denies: chest pain, edema, irregular heart rate, lightheadedness, palpitations Respiratory: Denies: cough, orthopnea Gastrointestinal/Abdominal: Denies: abdomen distended, abdominal pain Neurologic/Psychiatric: Denies: anxiety, depressed Allergies: Coded Allergies: No Known Allergies (Unverified , 02/22/15) Subjective Medicine follow up for rapid atrial fibrillation, better tare control overnight with diltiazem drip. No palpitations or dizziness. No chest pain Objective Last 24 Hour Vital Signs Date Time Temp Pulse Resp B/P (MAP) Pulse Ox O2 Delivery O2 Flow Rate FiO2 01/16/19 09:00 101 19 130/81 (97) 98 01/16/19 08:58 95 113/74 01/16/19 08:00 98.2 97 18 113/74 (87) 98 01/16/19 08:00 Room Air 01/16/19 08:00 104 01/16/19 07:00 91 16 107/83 (91) 98 01/16/19 06:00 88 19 111/79 (90) 97 01/16/19 05:00 82 17 119/63 (81) 97 01/16/19 04:00 88 01/16/19 04:00 98.4 81 19 98/64 (75) 98 01/16/19 04:00 Room Air 01/16/19 03:00 81 18 102/45 (64) 98 01/16/19 02:00 86 17 107/49 (68) 98 01/16/19 01:16 81 104/47 01/16/19 01:00 86 16 104/47 (66) 97 01/16/19 00:00 101 01/16/19 00:00 Room Air 01/16/19 00:00 98.7 101 20 119/69 (86) 98 01/15/19 23:00 109 19 110/68 (82) 97 01/15/19 22:00 107 21 142/67 (92) 99 01/15/19 21:00 109 15 130/82 (98) 99 01/15/19 20:00 98.2 108 21 134/77 (96) 98 01/15/19 20:00 Room Air 01/15/19 19:00 108 19 136/80 (98) 99 01/15/19 18:30 116 20 115/83 (94) 98 01/15/19 18:21 134 115/83 01/15/19 18:15 123 20 115/83 (94) 98 01/15/19 18:13 Room Air 01/15/19 18:06 127 01/15/19 18:00 98.3 134 23 127/82 (97) 98 01/15/19 17:50 97.8 128 18 131/76 98 Room Air 01/15/19 17:50 98.0 118 18 132/70 98 Room Air 01/15/19 17:00 97.8 122 18 132/70 98 Room Air 01/15/19 16:00 98.1 111 22 105/83 100 Room Air 01/15/19 15:49 119 108/89 01/15/19 15:00 98.2 134 21 109/71 100 Room Air 01/15/19 13:46 98.0 148 22 144/82 98 Room Air 01/15/19 13:18 144 110/63 01/15/19 13:12 175 171/99 01/15/19 12:50 98.1 175 24 175/100 99 Room Air 01/15/19 12:33 98.1 160 18 176/132 99 Room Air Intake and Output 01/15/19 01/16/19 19:00 07:00 Intake Total 8 ml 520 ml Output Total 300 ml Balance 8 ml 220 ml Intake Oral 0 ml 380 ml IV Total 8 ml 140 ml Output Urine Total 300 ml # Voids 1 3 Laboratory Tests 01/15/19 13:00: White Blood Count 10.2, Red Blood Count 4.20, Hemoglobin 11.1L, Hematocrit 33.9L , Mean Corpuscular Volume 81, Mean Corpuscular Hemoglobin 26.4L, Mean Corpuscular Hemoglobin Concent 32.7, Red Cell Distribution Width 14.2, Platelet Count 277, Mean Platelet Volume 6.6, Neutrophils (%) (Auto) 59.7, Lymphocytes (% ) (Auto) 31.9, Monocytes (%) (Auto) 5.5, Eosinophils (%) (Auto) 1.8, Basophils ( %) (Auto) 1.0, Sodium Level 140, Potassium Level 3.3L, Chloride Level 105, Carbon Dioxide Level 26, Anion Gap 9, Blood Urea Nitrogen 15, Creatinine 0.8, Estimat Glomerular Filtration Rate > 60, Glucose Level 125H, Calcium Level 7.9L , Total Bilirubin 0.2, Aspartate Amino Transf (AST/SGOT) 16, Alanine Aminotransferase (ALT/SGPT) 19, Alkaline Phosphatase 84, Total Creatine Kinase 78, Creatine Kinase MB 0.7, Creatine Kinase MB Relative Index 0.8, Troponin I 0.004, Total Protein 6.9, Albumin 2.9L, Globulin 4.0, Albumin/Globulin Ratio 0.7L 01/16/19 04:35: White Blood Count 10.9H, Red Blood Count 4.73, Hemoglobin 12.3, Hematocrit 38.5 , Mean Corpuscular Volume 82, Mean Corpuscular Hemoglobin 26.1L, Mean Corpuscular Hemoglobin Concent 32.0, Red Cell Distribution Width 14.3, Platelet Count 313, Mean Platelet Volume 6.7, Neutrophils (%) (Auto) 58.2, Lymphocytes (% ) (Auto) 31.1, Monocytes (%) (Auto) 7.3, Eosinophils (%) (Auto) 2.6, Basophils ( %) (Auto) 0.8, Sodium Level 138, Potassium Level 3.8, Chloride Level 103, Carbon Dioxide Level 25, Anion Gap 10, Blood Urea Nitrogen 12, Creatinine 0.7, Estimat Glomerular Filtration Rate > 60, Glucose Level 111H, Calcium Level 8.7, Troponin I 0.007, Magnesium Level 1.9, Thyroid Stimulating Hormone (TSH) 8.430H , Free Thyroxine 0.88 Height (Feet): 5 Height (Inches): 7.00 Weight (Pounds): 266 General Appearance: no apparent distress, alert EENT: PERRL/EOMI, normal ENT inspection Neck: normal alignment, supple, normal inspection Cardiovascular: normal peripheral pulses, normal rate, irregularly irregular Respiratory/Chest: lungs clear, normal breath sounds, no respiratory distress Abdomen: non tender, soft Extremities: non-tender, normal inspection Homar Lazar MD Jan 16, 2019 11:23
--- NOTE | 2019-01-16 12:30 | NUR ---
NURSE NOTES: Pt is sitting up in bed, having lunch, denies chest pain or any other discomfort currently. On room air with no respiratory distress. clinical research monitor displays AFib with heart rate fluctuating in the 80's to 90's. Pt has voided BMx1 and urine output x3 during my shift. Bed is locked, with two side rails up and call light within easy reach. Will continue to monitor pt and follow plan of care per Md orders and protocol.
--- NOTE | 2019-01-16 14:00 | NUR ---
NURSE NOTES: Pt's heart rate is fluctuating from 120's to 130's. Personnel from hospital business office is at bedside, assisting pt with paperwork to apply for Medical. Pt is anxious. Will continue to monitor pt.
--- NOTE | 2019-01-16 16:00 | NUR ---
NURSE NOTES: Pt is sitting up in bed with at bedside. Currently on room air with O2Sat 98%; denies any shortness of breath/respiratory distress. Denies chest pain or any other discomfort at this time. pattern chain maker supervisor displays AFib with heart rate fluctuating from 110's to 130's. Pt states "I'm worried about my son, he moved out of state". Pt is ambulatory with steady gait; have observed pt ambulate to/from restroom to void.
--- NOTE | 2019-01-16 18:00 | NUR ---
NURSE NOTES: Dr Rico was informed regarding HR fluctuating from 120's to 140's. Order received to increase Metoprolol dose from 75mg to 100mg Q12hr PO. Pt is currently resting in bed in semi-anne's position with at bedside. Pt denies chest pain or any respiratory distress/SOB. Will continue to monitor.
--- NOTE | 2019-01-16 19:16 | NUR ---
HAND-OFF: Report given to Donnell MATOS. Pt is resting in bed in stable condition with at bedside. Endorsed plan of care, including order to transfer pt to Tele (from Dr Rico and Dr Prado).
--- NOTE | 2019-01-16 19:30 | NUR ---
NURSE NOTES: Recvd.quiet in Bed watching TV at BS.Resp.unlabored.Sat.97% on RA.Denies CP.Scope At-Fib.rate uncontrolled.Metoprolol dose inc.See order.Poss. transfer to TELE.
--- NOTE | 2019-01-16 21:34 | NUR ---
NURSE NOTES: HS Care rendered.Due medical health researcher.HR remain uncont.goes as high as 161.On close Ca.monitoring and will hold poss.Tx.to TELE. tonite.
[2019-01-17] VITALS (13 sets, daily range): BP systolic 112–146; BP diastolic 51–115
--- NOTE | 2019-01-17 00:10 | NUR ---
NURSE NOTES: See V/S.Scope Pattern same.Rate uncont.Cont.close Ca.monitoring.Denies CP.Voided Freely.
--- NOTE | 2019-01-17 02:00 | NUR ---
NURSE NOTES: Sound Asleep,Resp.unlabored.Sat-98%.No Distress.
--- NOTE | 2019-01-17 04:00 | NUR ---
NURSE NOTES: Cont.to sleep at Long interval no resp.distress.VSS.Scope pattern same Rate fluctuates bet.110-140's.Asymptomatic.Maintain on Metoprolol.See order poss.TELE.Tx.
--- NOTE | 2019-01-17 07:12 | NUR ---
HAND-OFF: Report given to CARLO MOBLEY.
--- NOTE | 2019-01-17 08:00 | NUR ---
NURSE NOTES: Received patient awake and alert- denies pain. environmental monitoring technician shows uncontrolled A-Fib- rate 140-150'/min. Patient on RA - Sao2 98-100%. SL patent @ right hand - no s/s infiltration noted.
--- NOTE | 2019-01-17 08:55 | NUR ---
NURSE NOTES: Dr. Rico came to see patient- made aware of HR 140-160's/min- still A-fib - with plan to do Cardioversion at the bedside - ER MD called to assist with Cardioversion - plan of care changed- Cardioversion on hold for now per Dr. Rico
--- NOTE | 2019-01-17 08:59 | Cardiology Progress Note ---
Assessment/Plan Status: stable Assessment/Plan Atrial fibrillation -Metoprolol 100 BID + IV push -Cardizem 60 TID -Plan for cardioversion with anesthesia - will need one month of anticoagulation -CHADS score 0 -Aspirin 325 mg after one month of xarelto -Echocardiogram with normal LV function -Troponin negative #Hypokalemia -Replete electrolytes #Morbid obesity -lifestyle modification -Outpatient sleep study -Nutrition consult Subjective Cardiovascular: Reports: no symptoms Respiratory: Reports: no symptoms Gastrointestinal/Abdominal: Reports: no symptoms Genitourinary: Reports: no symptoms Subjective No acute events, not rate controlled, rates 140s on metoprolol 100 BID, no chest pain, troponin negative. Plan for cardioversion with anesthesia Objective Last 24 Hour Vital Signs Date Time Temp Pulse Resp B/P (MAP) Pulse Ox O2 Delivery O2 Flow Rate FiO2 01/17/19 08:00 146 01/17/19 08:00 Room Air Room Air Room Air 01/17/19 08:00 146 21 131/115 (120) 98 01/17/19 07:00 98.4 126 16 136/94 (108) 97 01/17/19 06:00 122 01/17/19 06:00 120 17 120/86 (97) 95 01/17/19 05:00 97.8 123 14 124/93 (103) 98 01/17/19 04:00 122 17 122/86 (98) 98 01/17/19 04:00 Room Air 01/17/19 03:00 121 18 114/81 (92) 98 01/17/19 02:00 118 17 135/51 (79) 98 01/17/19 01:00 120 17 118/81 (93) 98 01/17/19 00:00 Room Air 01/17/19 00:00 121 01/17/19 00:00 98.2 121 24 146/97 (113) 98 01/16/19 23:00 130 23 129/77 (94) 99 01/16/19 22:00 133 22 132/84 (100) 98 01/16/19 21:00 139 23 118/93 (101) 98 01/16/19 20:50 142 116/81 01/16/19 20:00 131 01/16/19 20:00 98.3 131 24 138/96 (110) 97 01/16/19 20:00 Room Air 01/16/19 19:00 140 25 141/103 (116) 97 01/16/19 18:00 133 24 139/98 (112) 99 01/16/19 17:00 145 29 128/100 (109) 98 01/16/19 16:00 125 01/16/19 16:00 Room Air 01/16/19 16:00 98.1 116 22 121/88 (99) 96 01/16/19 15:00 118 12 119/61 (80) 94 01/16/19 14:00 98.0 117 23 136/84 (101) 99 01/16/19 13:30 115 22 126/82 (97) 99 01/16/19 13:00 117 21 120/76 (91) 99 01/16/19 12:00 101 25 131/78 (95) 97 01/16/19 12:00 Room Air 01/16/19 12:00 96 01/16/19 11:00 96 20 112/74 (87) 98 01/16/19 11:00 96 22 112/74 (87) 98 01/16/19 10:30 89 19 122/81 (95) 97 01/16/19 10:30 88 19 122/81 (95) 98 01/16/19 10:15 89 21 117/87 (97) 97 01/16/19 10:00 87 25 117/87 (97) 98 01/16/19 10:00 88 22 117/87 (97) 96 01/16/19 09:45 88 25 121/78 (92) 98 01/16/19 09:30 99 19 133/86 (102) 98 01/16/19 09:00 101 19 130/81 (97) 98 01/16/19 08:58 95 113/74 General Appearance: no apparent distress, alert EENT: PERRL/EOMI, normal ENT inspection, TMs normal Neck: non-tender, normal alignment, supple, normal inspection Rhythm: Afib Cardiovascular: normal peripheral pulses, tachycardia, arrhythmia Respiratory/Chest: chest wall non-tender, lungs clear, normal breath sounds, no respiratory distress, no accessory muscle use, respiratory distress Abdomen: normal bowel sounds, non tender, soft, no organomegaly, no mass Extremities: normal range of motion, non-tender, normal inspection, no calf tenderness, no swelling Neurologic: customer energy specialist II-XII grossly normal, no motor/sensory deficits Intake and Output 01/16/19 01/17/19 18:59 06:59 Intake Total 140 ml 340 ml Balance 140 ml 340 ml Intake Oral 100 ml 340 ml IV Total 40 ml # Voids 5 2 # Bowel Movements 1 Laboratory Tests Test 01/17/19 03:25 Troponin I 0.002 ng/mL (0.000-0.056) Fan Rico MD Jan 17, 2019 08:59
[2019-01-17] MEDS ORDERED: Xarelto 10mg tab ORAL SCH (09:00)
[2019-01-17] MEDS: Heparin 5000 units/ml inj SUBQ SCH (09:03)
[2019-01-17] MEDS: Docusate 100mg cap ORAL SCH (09:03)
--- NOTE | 2019-01-17 09:50 | NUR ---
ARCHIVES TECHNICIANLOSS PREVENTION AGENT SI:ATRIAL FIBRILLATION RAPID VENTRICULAR RATE VS: BP 131/115, P 162, T 98.4, RR 21, SpO2 100 IS:XARELTO 20mg LOPRESSOR 100mg HEPARIN SUBQ DILTIAZEM 125ml IV ICU STATUS
--- NOTE | 2019-01-17 10:10 | NUR ---
NURSE NOTES: Dr. Prado came to see the patient- updated with patient's condition - made aware of plans of Dr. Rico -Cardioversion and LUCY- seen and examined the patient. Patient converted to SR - discussed patient's condition with Dr. Rico via phone - with order for discharge.
[2019-01-17] MEDS ORDERED: METOPROLOL TART50 M1 ORAL (10:12)
[2019-01-17] MEDS ORDERED: ASPIRIN EC325 MG ORAL (10:12)
--- NOTE | 2019-01-17 10:17 | Discharge Summary ---
Discharge Summary Hospital Course Date of Admission Jan 15, 2019 at 14:20 Date of Discharge 01/17/19 Admitting Diagnosis A-FIB WITH RVR HPI Kaila Shipley is a 38 year old female who was admitted on Jan 15, 2019 at 14: 20 for Atrial Fibrilation Rapid Ventricular Rate Hospital Course Patient was admitted to the ICU with rapid atrial fibrillation, initially on diltiazem drip with good rate control. She was seen by Cardiology, started on metoprolol 75mg bid. Was initially going to have LUCY cardioversion but she converted to NSR. Will be discharged home with metoprolol and ASA, PCP follow up next week #Rapid atrial fibrillation -converted to NSR -metoprolol 75 mg PO bid -SA 325mg daily #Hypokalemia, resolved #Morbid obesity -lifestyle modification Time spent in preparing discharge including coordination with nursing and Cardiology was 35 minutes Discharge Discharge Disposition Patient was discharged to Home Discharge Diagnoses: (1) Atrial fibrillation with RVR Homar Lazar MD Jan 17, 2019 10:17
--- NOTE | 2019-01-17 10:30 | NUR ---
Social Service Note SW met with patient who is alert, oriented and verbally responsive. Patient is independent with ADLS. Patient states about a year ago she was being treated in a clinic for intermitted chest pain. Patient states after 6 months of follow ups they were unable to determine cause. Patient states she felt fine and went back to her normal routine. Patient is non-insured and was provided assistance with applying for [employer]. Community care clinic list provided. Patient's emergency contact Devyn Zaire boyfriend [phone] and Berta Del Rosario mother [phone]. Patient is anticipated to return home upon discharge.
--- NOTE | 2019-01-17 11:52 | NUR ---
NURSE NOTES: Left messages ( Office # [phone] and [phone])to Dr. Jimenez voicemai- to report + VRE rectum- no response
[2019-01-17] MEDS ORDERED: Metoprolol Tartrate 10 MG in D5W 55 ML IVPB SCH (12:00)
--- NOTE | 2019-01-17 12:00 | NUR ---
NURSE NOTES: Patient remains Sr - rate 88-92/min- patient aware she is for dischage today. BP 127/77
--- NOTE | 2019-01-17 12:01 | NUR ---
NURSE NOTES: Dr. Prado notified of positive VRE rectum - no new order given - with OK to discharge patient home today
--- NOTE | 2019-01-17 12:20 | NUR ---
Social Service Note Return to work letter completed.
--- NOTE | 2019-01-17 12:20 | NUR ---
NURSE NOTES: Discharge instructions given- patient verbalized understanding.
--- NOTE | 2019-01-17 12:40 | NUR ---
NURSE NOTES: Patient dressing up getting ready to go home - SL @ Right hand removed- no bleeding noted - light pressure dressing applied
--- NOTE | 2019-01-17 12:50 | NUR ---
NURSE NOTES: Patient discharged home accompanied by in stable condition via wc. Patient awake and alert denies any pain or discomfort - no bleeding noted from post IV site
[2019-01-17] MEDS ORDERED: dilTIAZem HCl 30mg tab ORAL SCH (14:00)
== END 2019-01-17 12:50 | disposition home or self-care (01) | DRG 201 ==
LOC: EDBD 12:41 → EMR 12:50 → ICU 14:20 → UNDOADMIN 14:20 → 2E 14:20 → EDBEDREQ 14:34
DX: I48.91 Unspecified atrial fibrillation (principal); E66.01 Morbid (severe) obesity due to excess calories; Z68.41 Body mass index [BMI] 40.0-44.9, adult; I10 Essential (primary) hypertension; E87.6 Hypokalemia
CPT/HCPCS: 36415; 71045; 80048; 80053; 82550; 82553; 83735; 84439; 84443; 84484; 85025; 87081; 93005; 93306; 96374; 96375; 99291; J8499